=== PATIENT | female | born 1945 | race Caucasian/White ===

== ENCOUNTER 2021-06-17 08:01 | Outpatient (CLI) | payer OTHER ==
[~2021-06-17 08:01] MED LIST: BUCALSEP SPRAY30 ML MM; SYNTHROID75 MCG PO; ZYNCOF 20-400120 ML PO
== END 2021-06-17 08:10 | disposition home or self-care (01) ==
LOC: RX STUDY 08:01
PROVIDERS: ATTEND Internal Medicine Gastroenterology
DX: K56.600 Partial intestinal obstruction, unspecified as to cause (principal); K56.609 Unspecified intestinal obstruction, unspecified as to partial versus complete obstruction; C18.9 Malignant neoplasm of colon, unspecified; K59.00 Constipation, unspecified